=== PATIENT | female | born 1980 | race Native Hawaiian/Other Pacific Islander ===

== ENCOUNTER 2016-10-18 20:45 | Emergency (ER) | payer BC ==
[~2016-10-18] VITALS: Ht 175.3 cm; Wt 110.0 kg
[2016-10-18 23:30] VITALS: BP 155/94; TEMP 98.3
== END 2016-10-18 23:36 | disposition home or self-care (01) ==
LOC: ED 20:45
DX: M79.671 Pain in right foot (principal)
CPT/HCPCS: 99283

== ENCOUNTER 2017-10-16 18:00 | Emergency (ER) | payer BC ==
[~2017-10-16] VITALS: Ht 177.8 cm; Wt 108.9 kg
[2017-10-16 18:00] VITALS: TEMP 97.3
[2017-10-16 20:37] VITALS: BP 165/80
== END 2017-10-16 20:37 | disposition home or self-care (01) ==
LOC: ED 18:00
DX: S54.91XA Injury of unspecified nerve at forearm level, right arm, initial encounter (principal); S44.91XA Injury of unspecified nerve at shoulder and upper arm level, right arm, initial encounter
CPT/HCPCS: 99283

== ENCOUNTER 2017-10-19 15:31 | Outpatient (CLI) | payer BC | END 2017-10-19 22:09 | disposition home or self-care (01) | LOC: US 15:31 | DX: G56.81 Other specified mononeuropathies of right upper limb (principal) ==

== ENCOUNTER → 2018-11-03 15:42 | Outpatient (CLI) | payer OTHER | END | disposition home or self-care (01) | LOC: AMB 15:42 | DX: Z04.1 Encounter for examination and observation following transport accident (principal); M54.2 Cervicalgia ==

== ENCOUNTER 2018-11-03 16:02 | Emergency (ER) | payer OTHER ==
[~2018-11-03] VITALS: Ht 177.8 cm; Wt 99.8 kg
[2018-11-03 18:56] VITALS: BP 145/85; TEMP 98.2
== END 2018-11-03 18:56 | disposition home or self-care (01) ==
LOC: ED 16:02
DX: M54.2 Cervicalgia (principal); V43.52XA Car driver injured in collision with other type car in traffic accident, initial encounter
CPT/HCPCS: 99283

== ENCOUNTER 2018-12-10 19:29 | Emergency (ER) | payer OTHER ==
[~2018-12-10] VITALS: Ht 177.8 cm; Wt 99.8 kg
[2018-12-10] MEDS ORDERED: LISI20TA11 PO (19:54)
[2018-12-10] MEDS ORDERED: GABA300C2 PO (19:55)
[2018-12-10] MEDS ORDERED: METFTAB PO (19:55)
[2018-12-10 20:02] LABS: PLATELET COUNT 326 K/uL (152-353)
[2018-12-10 20:12] LABS: POTASSIUM 4.5 mmol/L (3.6-5.2); SODIUM 134 mmol/L (136-145)
[2018-12-10 20:35] LABS: PARTIAL THROMBOPLASTIN TIME 23.7 SECONDS (24.5-33.6)
[2018-12-10 21:30] VITALS: BP 110/58; TEMP 97.7
== END 2018-12-10 21:30 | disposition home or self-care (01) ==
LOC: ED 19:29
PROVIDERS: Hospitalist
DX: E86.0 Dehydration (principal); R42 Dizziness and giddiness; J06.9 Acute upper respiratory infection, unspecified; R00.0 Tachycardia, unspecified; I42.8 Other cardiomyopathies; Z79.899 Other long term (current) drug therapy
CPT/HCPCS: 80053; 80307; 80320; 81000; 81025; 82550; 83880; 84484; 85027; 85610; 85730; 93005; 96360; 99284

== ENCOUNTER 2019-01-06 22:14 | Emergency (ER) | payer OTHER ==
[~2019-01-06] VITALS: Ht 177.8 cm; Wt 99.8 kg
[~2019-01-06 22:14] MED LIST: GABA300C2 PO; LISI20TA11 PO; METFTAB PO
[2019-01-06 23:10] LABS: PLATELET COUNT 301 K/uL (152-353); SODIUM 133 mmol/L (136-145)
[2019-01-06 23:43] VITALS: BP 111/61; TEMP 98.1
== END 2019-01-06 23:44 | disposition home or self-care (01) ==
LOC: ED 22:14
PROVIDERS: Emergency Medicine
DX: E86.0 Dehydration (principal); E11.9 Type 2 diabetes mellitus without complications
CPT/HCPCS: 36415; 80053; 80307; 80320; 81000; 81025; 84484; 85027; 93005; 96360; 99284

== ENCOUNTER 2019-07-10 10:20 | Emergency (ER) | payer OTHER ==
[~2019-07-10] VITALS: Ht 177.8 cm; Wt 95.7 kg
[2019-07-10 10:30] VITALS: TEMP 98.2
[2019-07-10 12:15] VITALS: BP 128/82
== END 2019-07-10 12:15 | disposition home or self-care (01) ==
LOC: ED 10:20
DX: Z3A.01 Less than 8 weeks gestation of pregnancy (principal)
CPT/HCPCS: 81025; 99282

== ENCOUNTER 2020-07-15 11:54 | Emergency (ER) | payer OTHER ==
[~2020-07-15] VITALS: Ht 177.8 cm; Wt 90.7 kg
[2020-07-15 13:20] VITALS: BP 141/80; TEMP 97.8
== END 2020-07-15 13:20 | disposition home or self-care (01) ==
LOC: ED 11:54
DX: M51.26 Other intervertebral disc displacement, lumbar region (principal); S39.012A Strain of muscle, fascia and tendon of lower back, initial encounter; X50.9XXA Other and unspecified overexertion or strenuous movements or postures, initial encounter; Y92.89 Other specified places as the place of occurrence of the external cause
CPT/HCPCS: 81000; 81025; 96372; 99283; J1885

== ENCOUNTER 2020-10-07 10:55 | Emergency (ER) | payer OTHER ==
[~2020-10-07] VITALS: Ht 177.8 cm; Wt 95.3 kg
[2020-10-07 11:00] VITALS: TEMP 98
[2020-10-07] MEDS ORDERED: GLIP10TA55 PO (11:12)
[2020-10-07] MEDS ORDERED: DICLOFEN POT50 MG PO (11:13)
[2020-10-07 12:00] VITALS: BP 118/66
[2020-10-07 12:10] LABS: PLATELET COUNT 250 K/uL (152-353)
[2020-10-07 12:15] LABS: POTASSIUM 4.7 mmol/L (3.6-5.2)
== END 2020-10-07 12:59 | disposition home or self-care (01) ==
LOC: ED 10:55
PROVIDERS: Family Medicine
DX: E11.65 Type 2 diabetes mellitus with hyperglycemia (principal)
CPT/HCPCS: 36415; 80053; 81000; 82948; 85027; 96374; 99284; J1815

== ENCOUNTER 2021-01-29 21:35 | Emergency (ER) | payer OTHER ==
[~2021-01-29 21:35] MED LIST changes: +DICLOFEN POT50 MG PO; +GLIP10TA55 PO
== END 2021-01-29 22:44 | disposition home or self-care (01) ==
LOC: ED 21:35
DX: Z53.21 Procedure and treatment not carried out due to patient leaving prior to being seen by health care provider (principal)
CPT/HCPCS: 99281

== ENCOUNTER 2021-04-08 10:56 | Outpatient (CLI) | payer OTHER | END 2021-04-08 22:37 | disposition home or self-care (01) | LOC: US 10:56 | PROVIDERS: ATTEND Nurse Practitioner Family | DX: E04.1 Nontoxic single thyroid nodule (principal); Z12.31 Encounter for screening mammogram for malignant neoplasm of breast ==

== ENCOUNTER 2021-08-22 11:29 | Emergency (ER) | payer OTHER ==
[~2021-08-22] VITALS: Ht 177.8 cm; Wt 99.8 kg
[2021-08-22 11:56] VITALS: BP 128/84; TEMP 98.4
== END 2021-08-22 11:58 | disposition home or self-care (01) ==
LOC: ED 11:29
DX: L02.31 Cutaneous abscess of buttock (principal); Z98.890 Other specified postprocedural states; Z48.01 Encounter for change or removal of surgical wound dressing
CPT/HCPCS: 99282

== ENCOUNTER 2022-01-21 14:44 | Emergency (ER) | payer OTHER ==
[~2022-01-21] VITALS: Ht 177.8 cm; Wt 93.9 kg
[2022-01-21 15:15] VITALS: BP 131/84; TEMP 98.5
== END 2022-01-21 18:00 | disposition left against medical advice (07) ==
LOC: ED 14:44
DX: Z53.21 Procedure and treatment not carried out due to patient leaving prior to being seen by health care provider (principal)
CPT/HCPCS: 99281

== ENCOUNTER 2022-09-12 10:11 | Emergency (ER) | payer OTHER ==
[~2022-09-12] VITALS: Ht 177.8 cm; Wt 94.3 kg
[2022-09-12 11:25] LABS: PLATELET COUNT 198 K/uL (152-353)
[2022-09-12 11:28] LABS: POTASSIUM 4.1 mmol/L (3.6-5.2)
[2022-09-12 16:15] VITALS: BP 117/66; TEMP 97.4
== END 2022-09-12 15:48 | disposition home or self-care (01) ==
LOC: ED 10:11
PROVIDERS: Family Medicine
DX: K52.89 Other specified noninfective gastroenteritis and colitis (principal); R10.84 Generalized abdominal pain; A04.5 Campylobacter enteritis
CPT/HCPCS: 36415; 80053; 80307; 81000; 82150; 82272; 83690; 84484; 85027; 87015; 87045; 87899; 93005; 96361; 96366; 96374; 99284; J2405

== ENCOUNTER 2023-01-05 13:41 | Emergency (ER) | payer OTHER ==
[~2023-01-05] VITALS: Ht 177.8 cm; Wt 96.2 kg
[2023-01-05 15:52] VITALS: BP 129/77; TEMP 97.9
== END 2023-01-05 15:55 | disposition home or self-care (01) ==
LOC: ED 13:41
DX: S39.012A Strain of muscle, fascia and tendon of lower back, initial encounter (principal); M54.30 Sciatica, unspecified side
CPT/HCPCS: 81025; 96372; 99283; J1885